=== PATIENT | male | born 1975 | race Caucasian/White ===

== ENCOUNTER 2023-06-05 06:34 | Emergency (ER) | payer OTHER, SELFPAY ==
[2023-06-05 06:36] VITALS: BP 151/91
[2023-06-05 06:54] VITALS: BP 168/87
[2023-06-05 07:00] VITALS: BP 163/83
[2023-06-05 07:10] VITALS: BMI 36.7
--- NOTE | 2023-06-05 07:12 | ED.GENMED ---
History of Present Illness
General
Chief Complaint: Abdominal Pain
Source: patient
Time Seen by Provider: 06/05/23 06:55
Travel History
Have you had any contact with someone who has COVID-19?: No
Do you have any symptoms of coronavirus? Fever > 100 degrees, chills, cough, shortness of breath, sore throat, loss of taste or smell, muscle aches, or headache?: No
History of Present Illness
History of Present Illness:
This patient is a 47-year-old male who noticed for the past few days he has been feeling slightly nauseous. He wonders if it is related to his synjardy injection which he takes on Saturday evening. However, last night, at around midnight, he had a
gradual onset of moderate intensity epigastric pain that he describes as 'pressure'. The pain is constant without radiation, exacerbating, relieving factors. It is specifically noted is not stabbing. Patient states he is essentially been up all
night with the pain. He tried to have a bowel movement and says that he had 'a tiny bit of diarrhea', without black stool or blood. This morning he had an episode of nonbloody vomiting. He denies coffee-ground emesis. He denies chest pain or
pressure, dyspnea, urinary symptoms, fever, chills, or other complaints. Of note, patient takes 800 mg Advil every evening and a full dose of aspirin 325 every morning. Otherwise he denies nonsteroidal anti-inflammatory drug use. He denies
history of peptic ulcer disease.
Past History
Past History
ED Past Medical History: HTN, Hypercholesterolemia, NIDDM and Other (Obstructive sleep apnea)
ED Past Surgical History: Cholecystectomy, Orthopedic and Other (Uvula removal)
Social History
Tobacco: Non-smoker
Alcohol: None
Drug: None
Personal:
Living: with family
Phy Exam
Physical Exam
Physical Exam:
GENERAL: Alert , in no apparent distress
EYE: pupils equal and reactive
NECK: Supple, no significant adenopathy.
ENT: o/p clr, mmm.
CARDIAC: Regular rate and rhythm .
LUNGS: Clear breath sounds bilaterally, no acute respiratory distress, no wheezes/rales/rhonchi
ABDOMEN: Soft, very mild tenderness noted at epigastric right upper quadrant right lower quadrant area, no r/g, no cvat
NEUROLOGICAL: Alert and oriented, no focal neuro deficits
SKIN: Warm and dry, skin intact.
MUSCULOSKELETAL: No edema, well perfused.
PSYCH: Normal and appropriate interaction.
Course
Orders/Labs/Results
Orders:
Orders
06/05/23 07:10
ECG [Electrocardiogram (*1)] Stat
Reason for Study: Abdominal Pain
Pantoprazole [Protonix IV] 40 mg IV NOW STA
06/05/23 07:11
EKG- Treatment ONCE
06/05/23 07:16
CMP [Comprehensive Metabolic Panel] Urgent
Complete Blood Count/With Diff Urgent
Lipase Urgent
06/05/23 07:57
CT Abd/Pel (IV only)-DH only Urgent
Comment:
Reason For Exam: epigastric pain
06/05/23 09:07
Urinalysis Reflex To Culture Urgent
Date Specimen was Collected: 06/05/23
Time Specimen was Collected: 08:37
Abnormal Lab Results
06/05/23 06/05/23
07:16 09:07
MCH 31.7 H pg
(27.0-31.0)
Absolute Neuts (auto) 7.7 H 10^3/uL
(1.4-6.5)
Neutrophils % 79.7 H %
(42.2-75.2)
Lymphocytes % 13.1 L %
(20.5-51.1)
Glucose 176 H mg/dl
(70-99)
Lipase 583 H U/L
(23-300)
Urine Ketones 1+ A
(Negative)
Urine Glucose 3+ A
(Negative)
06/05/23 07:16
06/05/23 07:16
Vital Signs
Initial and Last Documented VS:
Initial Vital Signs
Temp Pulse Resp BP Pulse Ox
98.7 F 72 18 151/91 97
06/05/23 06:36 06/05/23 06:36 06/05/23 06:36 06/05/23 06:36 06/05/23 06:36
Last Documented Vital Signs
Temp Pulse Resp BP Pulse Ox
98.7 F 84 18 142/82 99
06/05/23 06:36 06/05/23 08:04 06/05/23 06:36 06/05/23 08:04 06/05/23 07:10
*Critical Care Note
Total Time (30-74mins, 75-104mins- exclusive of procedures): Not Applicable
Update Note
Update Note:
Patient presents to the Emergency Department with ____abdominal pain
Number and Complexity of Problems Addressed at the Encounter
� Chronic conditions affecting care:
� Acute Exacerbation and/or Progression of Chronic Illness:
� Differential Diagnosis includes: But not limited to gastritis, peptic ulcer, retained biliary stone, pancreatitis, ACS, etc.
Amount and/or Complexity of Data to be Reviewed and Analyzed
� I performed an independent evaluation of and my interpretation is:
EKG:read by me, nsr 1 degree block, no acute ischemia
CT: hepatomegaly, DDD, otherwise nad
Xrays:
Laboratory Studies:nonspecif lipase elevation (no abnl of pancreas notedon CT)
Other:
� Review of other/old records reveals: Patient seen in the emergency department in April 2018 with epigastric pain vomiting and diagnosed with enteritis. Op report from September 2011 notes patient had surgery for L5-S1 disc
herniation.. Colonscopy A 4 mm polyp was found in the descending colon. The polyp was
�� � semi-sessile. The polyp was removed with a cold snare. Resection and
�� � retrieval were complete.
�� � Small Internal hemorrhoids were found during retroflexion.
� Clinical information was obtained by an independent historian:
� Prescriptions/Medications Considered but not given:
� Further testing considered but not performed:
Risk of Complications and/or Morbidity or Mortality of Patient Management
� Social determinants of health affecting care:
� Discussion with other providers (PCP, Hospitalists, Consultants, etc):
� Escalation of care including admission/observation vs risk of discharge considered: Although patient's pain not fully resolved its much better, no specific tenderness to palpation. Gastritis/peptic ulcer disease is high on my
differential, did patient does not have signs or symptoms to suggest perforation or bleeding. Patient was advised very strongly to discontinue the Motrin and other anti-inflammatories that he is taking regularly. He was advised to take 325 of
aspirin every day by his doctor many years ago as a preventive measure given his history of diabetes. Weighing the risk and benefits, I recommend that he discontinue aspirin until further notice from his GI doctor. Discussed with patient
importance of avoiding medication, alcohol, etc. He also will need prompt GI follow-up likely EGD. In the interim, I will a PPI. Discussed with him importance of follow-up and reasons to return to the ER
ED Attending Note
-
Portions of this chart may have been created with voice recognition software.� Occasional wrong word or��sound alike� substitutions may have occurred due to the inherent limitations of voice recognition software.
Discharge Plan
Departure
Patient Disposition: Home (Routine Discharge)
Date of Disposition: 06/05/23
Time of Disposition: 09:38
Patient with high blood pressure during this ER visit?: Yes
Condition: Good
Discharge Problem:
Abdominal pain
Instructions: Abdominal Pain, BLOOD PRESSURE
Prescriptions:
New
omeprazole 40 mg capsule,delayed release(DR/EC)
40 mg PO DAILY Qty: 30 0RF
No Action
multivitamin 1 EACH tablet
1 ea PO DAILY
aspirin 325 MG tablet
325 mg PO DAILY
amlodipine 5 MG tablet
5 mg PO DAILY
glimepiride 4 MG tablet
8 mg PO DAILY
pioglitazone 30 MG tablet
30 mg PO DAILY
olmesartan-hydrochlorothiazide 1 EACH tablet
1 ea PO DAILY
rosuvastatin 20 MG tablet
20 mg PO QPM
nebivolol 10 MG tablet
10 mg PO DAILY
omega 2-zgf-dfo-fish oil [Fish Oil] 1 EACH capsule
2 ea PO DAILY
Synjardy 1 EACH tablet
2 ea PO DAILY
cholecalciferol (vitamin D3) 5,000 UNIT tablet,disintegrating
5,000 unit PO DAILY
Referrals:
Bowen Aldridge MD [Active] - Next open appointment
Vernon Hammonds CRNP [Family Provider] -
Activity Restrictions/Additional Instructions:
PLEASE AVOID ALL NSAID MEDICATIONS, WHICH INCLUDE ASPIRIN, EXCEDRIN, MOTRIN, ADVIL, ETC. IF YOU DEVELOP CHEST PAIN, TROUBLE BREATHING, INCREASING/NEW PAIN, VOMITING, BLEEDING (INCLUDING DARK STOOLS OR COFFEE GROUND VOMIT), DIZZINESS, OR OTHER
WORRISOME SIGNS, GO TO THE ER IMMEDIATELY!
Interventions
Interventions:
*Risk Screen - Suicide Last Done: 06/05/23 06:36
*General Assessment Last Done: 06/05/23 06:36
*Neglect/Abuse Screening Last Done: 06/05/23 06:36
ED- Fall Risk Assessment Last Done: 06/05/23 06:36
*ED COVID-19 Vaccine History Last Done: 06/05/23 06:36
OS-Dihfmc-Vpziuuttlx Assessment Last Done: 06/05/23 07:10
[2023-06-05] MEDS: PROTONIX IV 40 MG IV (07:16)
[2023-06-05 07:33] LABS: % Basophils 0.3 % (0-2); % Eosinophils 0.3 % (0-6); % Immature Granulocytes 0.4 % (0-0.5); % Lymphocytes 13.1 % (20.5-51.1); % Monocytes 6.2 % (1.7-9.3); % Neutrophils 79.7 % (42.2-75.2); Absolute Lymphocytes 1.3 10^3/uL (1.2-3.4); Absolute Monocytes 0.6 10^3/uL (0.1-0.6); Absolute Neutrophils 7.7 10^3/uL (1.4-6.5); Hematocrit 47.3 % (39.0-52.0); Hemoglobin 16.9 g/dL (13.0-18.0); Mean Corp Hgb Conc. 35.7 g/dL (33.0-37.0); Mean Corpuscular Hgb 31.7 pg (27.0-31.0); Mean Corpuscular Volume 88.7 fL (80.0-94.0); Mean Platelet Volume 10.2 fL (7.4-10.4); Nucleated Red Blood Cells % 0 % (-); Platelet Count 148 10^3/uL (130-400); Red Blood Cell Count 5.33 10^6/uL (4.70-6.10); White Blood Cell Count 9.6 10^3/uL (4.8-10.8)
[2023-06-05 07:43] LABS: ALT (SGPT) 44 U/L (0-50); AST (SGOT) 40 U/L (17-59); Albumin 4.9 g/dl (3.5-5.0); Alkaline Phosphatase 59 U/L (38-126); Blood Urea Nitrogen 16 mg/dl (9-20); Calcium 9.2 mg/dl (8.4-10.2); Carbon Dioxide 25 mmol/L (22-30); Chloride 103 mmol/L (98-107); Estimated Creatinine Clearance > 125 ml/min; Glucose 176 mg/dl (70-99); Lipase 583 U/L (23-300); Potassium 3.9 mmol/L (3.5-5.1); Sodium 136 mmol/L (135-145); Total Bilirubin 1.3 mg/dl (0.2-1.3); Total Protein 7.2 g/dl (6.3-8.2); eGFR > 60.00
[2023-06-05 08:00] VITALS: BP 76/49
[2023-06-05 08:04] VITALS: BP 142/82
[2023-06-05 09:20] LABS: Urine Albumin Negative (Neg - Trace); Urine Bilirubin Negative (Negative); Urine Character Clear (Clear); Urine Color Straw; Urine Glucose 3+ (Negative); Urine Ketone 1+ (Negative); Urine Leukocyte Negative (Negative); Urine Nitrite Negative (Negative); Urine Occult Blood Negative (Negative); Urine Urobilinogen Negative (Neg - 1+); Urine pH 6.5 (5.0-9.0)
[2023-06-05 09:42] VITALS: BP 148/95
== END 2023-06-05 09:49 | disposition home or self-care (01) ==
LOC: EMR 06:34
PROVIDERS: EMERGENCY PHYSICIAN Emergency Medicine; FAMILY PHYSICIAN Nurse Practitioner Family
DX: R10.9 Unspecified abdominal pain (principal); R10.13 Epigastric pain; R19.7 Diarrhea, unspecified; R11.2 Nausea with vomiting, unspecified; I10 Essential (primary) hypertension; Z87.11 Personal history of peptic ulcer disease
CPT/HCPCS: 99285; 96374; 74177; 80053; 81003; 83690; 85025; 93005; Q9967

== ENCOUNTER → 2024-12-13 06:42 | Outpatient (REF) | payer OTHER, SELFPAY | LOC: PAVMRI 06:42 | PROVIDERS: ATTENDING PHYSICIAN Orthopaedic Surgery; FAMILY PHYSICIAN Family Medicine | DX: M25.512 Pain in left shoulder (principal) | CPT/HCPCS: 73221 ==